=== PATIENT | female | born 1955 | race Caucasian/White ===

== ENCOUNTER 2017-08-11 15:33 | Emergency (ER) | payer BC ==
[~2017-08-11] VITALS: Ht 167.6 cm; Wt 86.3 kg
[~2017-08-11 15:33] MED LIST: GABAPENTIN400 MG PO; MECLIZINE HCL12.5 M1 PO; MELOXICAM15 MG PO; NOHOMEMEDS; PERCOCET 5/31 TABLET PO; RELPAX40 MG PO
[2017-08-11 17:09] LABS: ADD MIUA? NO; BILIRUBIN NEGATIVE; BLOOD NEGATIVE; COLOR COLORLESS ((YELLOW)); GLUCOSE (STRIP) NEGATIVE; KETONES NEGATIVE; LEUKOCYTES NEGATIVE; NITRITE NEGATIVE; PROTEIN (STRIP) NEGATIVE; SPECIFIC GRAVITY 1.004 (1.000-1.030); UROBILINOGEN 0.2 MG/DL (0.2-1.0)
[2017-08-11 17:20] LABS: BASOPHIL COUNT 0.1 K/uL (0-0.1); EOSINOPHIL (%) 1.6 % (0-5); EOSINOPHIL COUNT 0.1 K/uL (0-0.3); HEMATOCRIT 37.7 % (36.0-46.0); IMMATURE GRANULOCYTE (%) 0.3 % (0.0-0.7); INSTRUMENT ABS NEUTROPHIL CT 4.9 K/uL; LYMPHOCYTE COUNT 1.3 K/uL (1.0-2.8); MCH 28.5 PG (29.0-34.0); MCHC 32.4 G/DL (30.0-36.0); MCV 88.1 FL (83-99); MEAN PLAT.VOLUME 9.7 uM^3 (9.5-12.4); MONOCYTE (%) 5.7 % (3-12); MONOCYTE COUNT 0.4 K/uL (0-0.8); NEUTROPHIL (%) 72.2 % (45-76); NEUTROPHIL COUNT 4.9 K/uL (1.8-6.4); PLATELET COUNT 286 K/uL (156-360); RBC DIS.WIDTH-CV 13.2 % (11.8-14.6); RBC DIS.WIDTH-SD 42.7 % (39-53); RED BLOOD COUNT 4.28 M/uL (3.80-5.20); WHITE BLOOD COUNT 6.8 K/uL (4.1-10.2)
[2017-08-11 17:32] LABS: CHLORIDE 107 mEq/L (99-109); POTASSIUM 3.8 mEq/L (3.7-5.4); SODIUM 143 mEq/L (136-147)
[2017-08-11 17:34] LABS: GLUCOSE 87 mg/dL (70-99)
[2017-08-11 17:35] LABS: ANION GAP 11 MEQ/L (2-14)
[2017-08-11 17:36] LABS: TOTAL BILIRUBIN 0.4 mg/dL (0.0-1.0)
[2017-08-11 17:38] LABS: ALKALINE PHOSPHATASE 74 IU/L (3-129); GFR ESTIMATE (CALCULATED) > 59 mL/min/
[2017-08-11 17:39] LABS: UREA NITROGEN (BUN) 14 mg/dL (9-23)
[2017-08-11 17:41] LABS: CREATINE KINASE 63 IU/L (1-294)
[2017-08-11] MEDS ORDERED: MOTRIN800 MG PO (19:32)
[2017-08-11] MEDS ORDERED: NORCO 5/3251 TABLET PO (19:32)
[2017-08-11] MEDS ORDERED: VALIUM5 MG PO (19:36)
[2017-08-11 20:02] VITALS: BP 145/74
[2017-08-13 09:24] LABS: LYME DISEASE SEROLOGY SCREEN NEGATIVE (NEGATIVE)
== END 2017-08-11 20:02 | disposition home or self-care (01) ==
LOC: EME 15:33
PROVIDERS: Physician Assistant
DX: J11.1 Influenza due to unidentified influenza virus with other respiratory manifestations (principal); M79.1 Myalgia; R25.2 Cramp and spasm; G89.29 Other chronic pain; Z88.2 Allergy status to sulfonamides
CPT/HCPCS: 80053; 81003; 82550; 83605; 85025; 86618; 87040; 87502; 93005; 99281; 99284; J1885; J2060; J7030